=== PATIENT | female | born 1970 | race African-American/Black ===

== ENCOUNTER 2019-02-10 16:00 | Emergency (ER) | payer OTHER ==
--- NOTE | 2019-02-10 16:05 | PDOC ---
Rapid Medical Evaluation Chief Complaint: Injury Time Seen by Provider: 02/10/19 16:00 Medical Evaluation: 02/10/19 16:01 I have performed a brief in-person evaluation of this patient. The patient presents with a chief complaint of: tripped and twisted right leg and shoulder Pertinent physical exam findings: swelling to knee I have ordered the following: Knee Xray The patient will proceed to the ED for further evaluation. 02/10/19 16:04 Discharge Disposition - Diagnosis Fall - Referrals - Patient Instructions - Post Discharge Activity
[2019-02-10 16:11] VITALS: BP 138/76; PULSE 63; TEMP 97.5; BMI 35.4
--- NOTE | 2019-02-10 16:45 | PDOC ---
History of Present Illness - General Chief Complaint: Injury Stated Complaint: FALL Time Seen by Provider: 02/10/19 16:00 - History of Present Illness Initial Comments: 02/10/19 16:42 48-year-old female with a past medical history significant for hypertension presents for evaluation of right shoulder and right knee pain after a fall. She states she was at work fell down about 2 steps did not hit her head ambulated but came to the emergency room for further evaluation. She points to the anterior aspect of the right knee and right shoulder as the areas of her discomfort. No postinjury nausea vomiting or visual changes again she did not hit her head Past History - Past Medical History Allergies/Adverse Reactions: Allergies Allergy/AdvReac Type Severity Reaction Status Date / Time No Known Allergies Allergy Verified 02/10/19 16:02 Home Medications: Ambulatory Orders Hydrochlorothiazide [Hctz -] 25 mg PO DAILY 02/10/19 Lisinopril [Prinivil] 5 mg PO DAILY 02/10/19 COPD: No GI Disorders: Yes HTN: Yes - Surgical History Abdominal Surgery: (hernia repair, abd sx, unknown mesh?) Appendectomy: Yes - Suicide/Smoking/Psychosocial Hx Smoking History: Never smoked Hx Alcohol Use: Yes (rare) Drug/Substance Use Hx: No Review of Systems - Review of Systems Musculoskeletal: Yes: Joint Pain *Physical Exam - Vital Signs Last Vital Signs Temp Pulse Resp BP Pulse Ox 97.5 F L 63 16 138/76 98 02/10/19 16:03 02/10/19 16:03 02/10/19 16:03 02/10/19 16:03 02/10/19 16:03 - Physical Exam Comments: 02/10/19 16:42 Right shoulder skin color and temperature are normal range of motion is full and nonpainful. There is no tenderness. There is 5 out of 5 strength testing including supraspinatus isolation and external rotation as well as internal rotation. There are no gross sensory motor deficits negative impingement maneuvers. She's neurovascularly intact. Right knee skin color and temperature are normal range of motion is full and nonpainful. There is mild patellofemoral crepitation. No instability no apprehension, thighs and calves are soft and nontender no tenderness about the proximal fibula or along its distal course normal range of motion of the ankle and hip she's neurovascularly intact. Medical Decision Making - Medical Decision Making 02/10/19 16:43 X-rays of the right knee show no evidence of fracture trauma. There is mild arthritic changes. There is a right knee contusion and a right shoulder contusion. Weight-bear as tolerated follow-up with orthopedic surgery without fail for further evaluation and treatment options. Patient is in agreement with the plan discussed use of avoiding anti-inflammatories because of her CHRISTA inhibitor medication she'll take Tylenol for pain *DC/Admit/Observation/Transfer Diagnosis at time of Disposition: Fall, Contusion of knee, right, Contusion of right shoulder - Discharge Dispostion Disposition: HOME Condition at time of disposition: Stable Decision to Admit order: No - Referrals Referrals: Tacos Ness DO [Staff Physician] - - Patient Instructions Printed Discharge Instructions: Contusion, DI for Contusion Additional Instructions: Tylenol for pain as directed. Return to the emergency room for worsening symptoms. Follow-up with orthopedic surgery in 2-3 days for further evaluation and treatment options without fail. - Post Discharge Activity Forms/Work/School Notes: Back to Work
== END 2019-02-10 16:44 | disposition home or self-care (01) ==
LOC: JERFT 16:00
DX: S40.011A Contusion of right shoulder, initial encounter (principal); S80.01XA Contusion of right knee, initial encounter; W10.8XXA Fall (on) (from) other stairs and steps, initial encounter; Y93.89 Activity, other specified; Y92.248 Other public administrative building as the place of occurrence of the external cause; Y99.0 Civilian activity done for income or pay
CPT/HCPCS: 73562-TC-RT-FY; 99281-25

== ENCOUNTER 2020-04-12 16:21 | Emergency (ER) | payer OTHER ==
[2020-04-12 16:28] VITALS: BP 163/84; PULSE 56; TEMP 98.3; BMI 33.6
--- NOTE | 2020-04-12 16:50 | PDOC ---
History of Present Illness - General Chief Complaint: Headache Stated Complaint: HBP/SENT BY PCP Time Seen by Provider: 04/12/20 16:45 History Source: Patient - History of Present Illness Timing/Duration: reports: other (this am) Past History - Medical History Allergies/Adverse Reactions: Allergies Allergy/AdvReac Type Severity Reaction Status Date / Time No Known Allergies Allergy Verified 04/12/20 16:26 Home Medications: Ambulatory Orders Hydrochlorothiazide [Hctz -] 25 mg PO DAILY 02/10/19 Lisinopril [Prinivil] 5 mg PO DAILY 02/10/19 COPD: No GI Disorders: Yes (GERD) HTN: Yes - Surgical History Abdominal Surgery: (hernia repair, abd sx, unknown mesh?) Appendectomy: Yes - Reproductive History Is Patient Now?: No - Immunization History Immunization Up to Date: Yes - Psycho-Social/Smoking History Smoking History: Never smoked - Substance Abuse Hx (Audit-C & DAST Scrn) How often the patient has a drink containing alcohol: Never Score: In Men: 4 or > Positive; In Women: 3 or > Positive: 0 Screen Result (Pos requires Nsg. Audit-10AR): Negative In the last yr the pt used illegal drug/Rx for NonMed reason: No Score: Yes response is considered Positive: 0 Screen Result (Positive result requires Nsg. DAST-10): Negative Review of Systems - Review of Systems Constitutional: No: Chills, Fever ABD/GI: Yes: Nausea. No: Vomiting Neurological: Yes: Headache. 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 Patient had an appointment in [facility] clinic today and states blood pressure was found to be 160/100. Patient reported in clinic that she has been having a severe frontal headache all day, currently 10 out of 10, worse with food and associated with nausea. Patient states she has had headaches in the past but only with her period and has been postmenopausal now for several years. Denies headache is a worse of her life. No dizziness, vertigo, visual changes or focal weakness. Has not taken anything for pain see exam ÁLVAREZ in setting of poorly controlled HTN Alert w/ BP 163/84 w/ no focal deficits -pain control -CT head 04/12/20 18:25 CTH read as negative. Pt reports improvement in ÁLVAREZ w/ meds. Dc to f/u with PMD for better BP management Discharge - Discharge Information Problems reviewed: Yes Clinical Impression/Diagnosis: Elevated blood pressure reading Headache Qualifiers: Headache type: unspecified Headache chronicity pattern: acute headache Intractability: not intractable Qualified Code(s): R51 - Headache Condition: Improved Disposition: HOME - Follow up/Referral Referrals: Cosme Piper MD [Primary Care Provider] - - Patient Discharge Instructions Patient Printed Discharge Instructions: DI for Headache Additional Instructions: You head CT was normal Please continue to follow up with your PMD for better BP control - Post Discharge Activity
[2020-04-12] MEDS ORDERED: METOCLOPRAMIDE HCL INJECTION 10 MG/2 ML VIAL IVPB ONE (16:51)
[2020-04-12] MEDS ORDERED: METOCLOPRAMIDE HCL INJECTION 10 MG/2 ML VIAL ONE (17:05)
== END 2020-04-12 18:38 | disposition home or self-care (01) ==
LOC: JER 16:21
PROC: 3E033GC Introduction of Other Therapeutic Substance into Peripheral Vein, Percutaneous Approach (ICD-10-PCS; principal; 2020-04-12)
DX: R51 Headache (principal); R03.0 Elevated blood-pressure reading, without diagnosis of hypertension
CPT/HCPCS: 70450-TC; 99284-25

== ENCOUNTER 2021-03-30 04:25 | Day surgery (SDC) | payer OTHER ==
[2021-03-28 09:44] VITALS: BMI 33.6
[2021-03-30] MEDS ORDERED: LIDOCAINE 1%/EPI 1:100000 (20 ML MULTI DOSE VIAL) ONE (07:18)
[2021-03-30] MEDS ORDERED: BUPIVACAINE HCL/PF 0.5% (5MG/ML) 10 ML VIAL ONE ×2 (07:18→07:37)
[2021-03-30] MEDS ORDERED: KETOROLAC TROMETHAMINE 30 MG/1 ML VIAL ONE ×2 (07:39→09:40)
[2021-03-30] MEDS ORDERED: SUCCINYLCHOLINE CHLORIDE 200 MG/10 ML SYRINGE ONE (07:39)
[2021-03-30] MEDS ORDERED: PROPOFOL 20 ML ONE ×3 (07:39→08:32)
[2021-03-30] MEDS ORDERED: DEXAMETHASONE SOD PHOSPHATE 4 MG/1 ML VIAL ONE ×2 (07:39→09:40)
[2021-03-30] MEDS ORDERED: MIDAZOLAM HCL 2 MG/2 ML SINGLE DOSE VIAL ONE (07:39)
[2021-03-30] MEDS ORDERED: ONDANSETRON 4 MG/2 ML VIAL ONE ×2 (07:39→09:40)
[2021-03-30] MEDS ORDERED: ONDANSETRON 4 MG/2 ML VIAL IVPUSH PRN (08:27)
[2021-03-30] MEDS ORDERED: oxyCODONE HCL 5 MG TABLET PO PRN (08:27)
[2021-03-30] MEDS ORDERED: LACTATED RINGERS SOLUTION 1,000 ML IV SCH (08:30)
[2021-03-30] MEDS ORDERED: LIDOCAINE HCL 1% EPINEPHRINE 1:200,000 30 ML VIAL (PF) ONE (09:17)
[2021-03-30] MEDS ORDERED: BUPIVACAINE HCL/PF 0.5% (5MG/ML) 10 ML VIAL IJ ONE (09:35)
[2021-03-30] MEDS ORDERED: LIDOCAINE 1%/EPI 1:100000 (50 ML MULTI DOSE VIAL) INF ONE (09:35)
[2021-03-30] MEDS ORDERED: ACETAMINOPHEN 325 MG TABLET (FP) ONE (12:24)
[2021-03-30] MEDS ORDERED: ACETAMINOPHEN 325 MG TABLET (FP) PO ONE (12:30)
[2021-03-30 12:53] VITALS: BP 129/76; PULSE 68; TEMP 98
== END 2021-03-30 13:03 | disposition home or self-care (01) ==
LOC: JASU-SURG 04:25
PROVIDERS: ATTEND Orthopaedic Surgery
PROC: 0SBD4ZZ Excision of Left Knee Joint, Percutaneous Endoscopic Approach (ICD-10-PCS; principal; 2021-03-30 08:00)
DX: M23.8X2 Other internal derangements of left knee (principal); X58.XXXA Exposure to other specified factors, initial encounter; Y92.9 Unspecified place or not applicable; I10 Essential (primary) hypertension; D64.9 Anemia, unspecified; K21.9 Gastro-esophageal reflux disease without esophagitis
CPT/HCPCS: 94760

== ENCOUNTER 2021-05-26 17:25 | Inpatient (IN) | payer OTHER ==
[2021-05-26 17:43] VITALS: BMI 34.2
[2021-05-26 19:02] LABS: BASO % 0.7 % (0-2.0); EOS % 1.3 % (0-4.5); HEMATOCRIT 23.9 % (32.4-45.2); HEMOGLOBIN 7.5 GM/dL (10.7-15.3); LYMPH % 32.4 % (8-40); MCH 23.5 pg (25.7-33.7); MCHC 31.6 g/dl (32.0-36.0); MEAN CELL VOLUME 74.4 fl (80-96); MEAN PLT VOLUME 8.2 fl (7.5-11.1); MONO % 12.7 % (3.8-10.2); NEUT % 52.9 % (42.8-82.8); PLATELET COUNT 246 10^3/uL (134-434); RBC 3.21 M/mm3 (3.60-5.2); RDW 19.5 % (11.6-15.6); WHITE BLOOD COUNT 4.6 K/mm3 (4.0-10.0)
[2021-05-26 19:08] LABS: INR 0.97 (0.83-1.09); PROTHROMBIN TIME (PATIENT) 11.3 SEC (9.7-13.0)
[2021-05-26 19:15] LABS: CHLORIDE 103 mmol/L (98-107); SODIUM 140 mmol/L (136-145)
[2021-05-26 19:17] LABS: ANION GAP 7 MMOL/L (8-16); CALCIUM 8.6 mg/dL (8.5-10.1); CO2 30 mmol/L (21-32)
[2021-05-26 19:18] LABS: ALBUMIN 3.5 g/dl (3.4-5.0); BLOOD UREA NITROGEN 13.8 mg/dL (7-18)
[2021-05-26 19:21] LABS: SGOT/AST 14 U/L (15-37); SGPT/ALT 27 U/L (13-61)
[2021-05-26 19:22] LABS: CREATININE 0.8 mg/dL (0.55-1.3)
[2021-05-26 19:23] LABS: BILIRUBIN,TOTAL 0.2 mg/dL (0.2-1); TOT PROT 7.4 g/dl (6.4-8.2)
[2021-05-26 19:24] LABS: ALK PHOS 105 U/L (45-117)
[2021-05-26] MEDS ORDERED: PANTOPRAZOLE SODIUM 40 MG VIAL IVPUSH ONE (19:53)
[2021-05-26 20:03] LABS: GLUCOSE,RANDOM 88 mg/dL (74-106)
[2021-05-26] MEDS ORDERED: PANTOPRAZOLE SODIUM 40 MG VIAL ONE (20:15)
[2021-05-26 21:23] LABS: RETICULOCYTES 2.62 % (0.5-1.5)
[2021-05-26 21:28] LABS: IRON SERUM 13 ug/dL (50-175)
[2021-05-26 21:29] LABS: TOTAL IRON BINDING CAPACITY 392 ug/dL (250-450)
[2021-05-26 21:34] LABS: LDH 167 U/L (84-246)
[2021-05-27 08:13] LABS: CALCIUM 8.5 mg/dL (8.5-10.1)
[2021-05-27 08:16] LABS: BASO % 0.6 % (0-2.0); EOS % 1.4 % (0-4.5); HEMATOCRIT 25.8 % (32.4-45.2); HEMOGLOBIN 8.4 GM/dL (10.7-15.3); LYMPH % 37.5 % (8-40); MCH 25.1 pg (25.7-33.7); MCHC 32.6 g/dl (32.0-36.0); MEAN PLT VOLUME 8.9 fl (7.5-11.1); MONO % 11.9 % (3.8-10.2); NEUT % 48.6 % (42.8-82.8); PLATELET COUNT 227 10^3/uL (134-434); RBC 3.36 M/mm3 (3.60-5.2); RDW 19.9 % (11.6-15.6); WHITE BLOOD COUNT 4.1 K/mm3 (4.0-10.0)
[2021-05-27 08:20] LABS: CREATININE 0.8 mg/dL (0.55-1.3)
[2021-05-27] MEDS ORDERED: DEXTROSE 5%-0.45% SALINE 1,000 ML IV SCH (09:45)
[2021-05-27] MEDS ORDERED: D5-1/2NS+20 MEQ KCL - 20 MEQ/1,000 ML INFUS.BAG IV SCH (11:00)
[2021-05-27] MEDS: PANTOPRAZOLE SODIUM 40 MG VIAL IVPUSH SCH (12:30)
[2021-05-27] MEDS: KCL 10 MEQ IVPB 10 MEQ/100 ML INFUS.BAG IVPB SCH ×2 (12:58→15:31)
[2021-05-27] MEDS ORDERED: IRON SUCROSE INJECTION 200 MG in SODIUM CHLORIDE 90 ML IVPB ONE (13:00)
[2021-05-27] MEDS ORDERED: POTASSIUM CHLORIDE ORAL LIQUID 20 MEQ/15 ML PO ONE (15:32)
[2021-05-27 16:42] LABS: HEMATOCRIT 27.5 % (32.4-45.2); HEMOGLOBIN 8.8 GM/dL (10.7-15.3); MCH 24.4 pg (25.7-33.7); MEAN CELL VOLUME 76.4 fl (80-96); MEAN PLT VOLUME 8.7 fl (7.5-11.1); PLATELET COUNT 231 10^3/uL (134-434); RDW 19.7 % (11.6-15.6); WHITE BLOOD COUNT 5.4 K/mm3 (4.0-10.0)
[2021-05-28 07:30] LABS: BASO % 0.7 % (0-2.0); EOS % 0.8 % (0-4.5); HEMATOCRIT 25.4 % (32.4-45.2); HEMOGLOBIN 8.3 GM/dL (10.7-15.3); LYMPH % 29.2 % (8-40); MCHC 32.5 g/dl (32.0-36.0); MEAN CELL VOLUME 76.9 fl (80-96); MEAN PLT VOLUME 8.8 fl (7.5-11.1); MONO % 11.2 % (3.8-10.2); NEUT % 58.1 % (42.8-82.8); PLATELET COUNT 228 10^3/uL (134-434); RBC 3.31 M/mm3 (3.60-5.2); WHITE BLOOD COUNT 5.5 K/mm3 (4.0-10.0)
[2021-05-28 07:38] LABS: CHLORIDE 109 mmol/L (98-107); SODIUM 143 mmol/L (136-145)
[2021-05-28 07:42] LABS: BLOOD UREA NITROGEN 9.7 mg/dL (7-18); GLUCOSE,RANDOM 97 mg/dL (74-106)
[2021-05-28 07:44] LABS: CALCIUM 7.6 mg/dL (8.5-10.1); CREATININE 0.7 mg/dL (0.55-1.3); IRON SERUM 312 ug/dL (50-175)
[2021-05-28 07:45] LABS: ANION GAP 7 MMOL/L (8-16); CO2 27 mmol/L (21-32); TOTAL IRON BINDING CAPACITY 324 ug/dL (250-450)
[2021-05-28 07:49] LABS: LDH 134 U/L (84-246)
[2021-05-28] MEDS: PANTOPRAZOLE SODIUM 40 MG VIAL IVPUSH SCH (09:31)
[2021-05-28] MEDS: LOSARTAN 50MG/HCTZ 12.5MG 1 TAB PO SCH (11:04)
[2021-05-29 08:30] LABS: BASO % 0.7 % (0-2.0); EOS % 1.7 % (0-4.5); HEMATOCRIT 27.8 % (32.4-45.2); HEMOGLOBIN 8.9 GM/dL (10.7-15.3); LYMPH % 31.3 % (8-40); MCH 24.8 pg (25.7-33.7); MEAN CELL VOLUME 77.4 fl (80-96); MEAN PLT VOLUME 8.3 fl (7.5-11.1); MONO % 11.2 % (3.8-10.2); NEUT % 55.1 % (42.8-82.8); PLATELET COUNT 234 10^3/uL (134-434); RBC 3.59 M/mm3 (3.60-5.2); RDW 20.1 % (11.6-15.6); WHITE BLOOD COUNT 5.5 K/mm3 (4.0-10.0)
[2021-05-29 08:39] LABS: CALCIUM 8.2 mg/dL (8.5-10.1)
[2021-05-29 08:41] LABS: ALBUMIN 3.2 g/dl (3.4-5.0); BLOOD UREA NITROGEN 10.1 mg/dL (7-18)
[2021-05-29 08:43] LABS: CREATININE 0.8 mg/dL (0.55-1.3)
[2021-05-29 08:44] LABS: BILIRUBIN,TOTAL 0.4 mg/dL (0.2-1)
[2021-05-29] MEDS: LOSARTAN 50MG/HCTZ 12.5MG 1 TAB PO SCH (09:28)
[2021-05-29] MEDS: PANTOPRAZOLE SODIUM 40 MG VIAL IVPUSH SCH (09:29)
[2021-05-30 08:35] LABS: BASO % 0.8 % (0-2.0); EOS % 1.6 % (0-4.5); HEMATOCRIT 28.1 % (32.4-45.2); HEMOGLOBIN 9.1 GM/dL (10.7-15.3); LYMPH % 32.6 % (8-40); MCHC 32.6 g/dl (32.0-36.0); MEAN CELL VOLUME 76.7 fl (80-96); MEAN PLT VOLUME 8.1 fl (7.5-11.1); MONO % 9.3 % (3.8-10.2); NEUT % 55.7 % (42.8-82.8); PLATELET COUNT 237 10^3/uL (134-434); RBC 3.66 M/mm3 (3.60-5.2); RDW 20.5 % (11.6-15.6); WHITE BLOOD COUNT 5.2 K/mm3 (4.0-10.0)
[2021-05-30] MEDS ORDERED: PT OWN MED DRAWER 7, Y5N ONE (08:58)
[2021-05-30] MEDS: PANTOPRAZOLE SODIUM 40 MG VIAL IVPUSH SCH (09:18)
[2021-05-30] MEDS: LOSARTAN 50MG/HCTZ 12.5MG 1 TAB PO SCH (09:18)
[2021-05-30 11:18] LABS: ANISOCYTOSIS 1+; MACROCYTOSIS 0; OVALOCYTE 1+; PLATELET ESTIMATE NORMAL; TEAR DROP CELLS 1+
[2021-05-30] MEDS ORDERED: BISACODYL 5 MG TABLET.DR (FP) PO ONE (16:00)
[2021-05-30] MEDS ORDERED: PEG 3350/NA SULF BICARB CL/KCL 4000 ML SOLN.RECON PO ONE (17:00)
[2021-05-30 20:07] LABS: GLIADIN ANTIBODY IGA 5 units (0-19); GLIADIN ANTIBODY IGG 2 units (0-19); TRANSGLUTAMINASE IGG < 2 U/mL (0-5)
[2021-05-31] MEDS ORDERED: SODIUM PHOSPHATE/NA BIPHOS 133 ML ENEMA RC ONE (04:00)
[2021-05-31] MEDS ORDERED: SIMETHICONE 40 MG/0.6 ML BOTTLE ONE (13:30)
[2021-05-31] MEDS: LOSARTAN 50MG/HCTZ 12.5MG 1 TAB PO SCH (15:36)
[2021-05-31] MEDS: PANTOPRAZOLE SODIUM 40 MG VIAL IVPUSH SCH (15:36)
[2021-06-01 08:25] LABS: BASO % 0.6 % (0-2.0); HEMATOCRIT 28.3 % (32.4-45.2); HEMOGLOBIN 9.2 GM/dL (10.7-15.3); LYMPH % 26.9 % (8-40); MCH 25.1 pg (25.7-33.7); MCHC 32.3 g/dl (32.0-36.0); MEAN CELL VOLUME 77.5 fl (80-96); MEAN PLT VOLUME 8.6 fl (7.5-11.1); MONO % 10.7 % (3.8-10.2); NEUT % 60.8 % (42.8-82.8); PLATELET COUNT 220 10^3/uL (134-434); RBC 3.66 M/mm3 (3.60-5.2); RDW 21.4 % (11.6-15.6); WHITE BLOOD COUNT 5.1 K/mm3 (4.0-10.0)
[2021-06-01 08:37] LABS: CALCIUM 8.7 mg/dL (8.5-10.1)
[2021-06-01 08:38] LABS: BLOOD UREA NITROGEN 12.7 mg/dL (7-18)
[2021-06-01 08:41] LABS: CREATININE 0.8 mg/dL (0.55-1.3)
[2021-06-01] MEDS ORDERED: PT OWN MED DRAWER 7, Y5N ONE ×3 (10:19→15:43)
[2021-06-01] MEDS: LOSARTAN 50MG/HCTZ 12.5MG 1 TAB PO SCH (10:21)
[2021-06-01 12:05] VITALS: BP 133/94; PULSE 87; TEMP 99
== END 2021-06-01 14:43 | disposition home or self-care (01) | DRG 379 ==
LOC: JER 17:25 → JERBED 20:12 → J4W 05-27 02:22 → J7W 05-29 16:20
PROVIDERS: ADMIT Internal Medicine; ATTEND Family Medicine
PROC: 30233N1 Transfusion of Nonautologous Red Blood Cells into Peripheral Vein, Percutaneous Approach (ICD-10-PCS; 2021-05-26)
PROC: 0DB68ZX Excision of Stomach, Via Natural or Artificial Opening Endoscopic, Diagnostic (ICD-10-PCS; 2021-05-30)
PROC: 0DJD8ZZ Inspection of Lower Intestinal Tract, Via Natural or Artificial Opening Endoscopic (ICD-10-PCS; principal; 2021-05-31 12:30)
DX: K92.2 Gastrointestinal hemorrhage, unspecified (principal); D50.9 Iron deficiency anemia, unspecified; I10 Essential (primary) hypertension; K21.9 Gastro-esophageal reflux disease without esophagitis; R42 Dizziness and giddiness; K44.9 Diaphragmatic hernia without obstruction or gangrene; E66.9 Obesity, unspecified; Z68.34 Body mass index [BMI] 34.0-34.9, adult; K57.30 Diverticulosis of large intestine without perforation or abscess without bleeding; K64.8 Other hemorrhoids
CPT/HCPCS: 36415; 36430; 71045-TC-FY; 80048; 80053; 82272; 82550; 82728; 82784; 83010; 83516; 83540; 83550; 83615; 84484; 84703; 85025; 85027; 85045; 85610; 85730; 86140; 86850; 86900; 86901; 86922; 88305-TC; 93005; 93010; 93306-TC; 99285-25; C9803; J1756; P9058; U0003; U0005

== ENCOUNTER 2022-09-25 12:27 | Emergency (ER) | payer OTHER ==
[2022-09-25 13:14] VITALS: BP 146/92; PULSE 86; RESP 18; TEMP 98.9; BMI 34.5
[2022-09-25] MEDS ORDERED: DEXAMETHASONE SOD PHOSPHATE 10 MG/1 ML VIAL PO ONE (15:31)
[2022-09-25] MEDS ORDERED: ALBUTEROL SO4 2.5/IPRATROPIUM 0.5 INH SOL 3 ML VIAL.NEB. NEB ONE ×2 (15:31→15:43)
[2022-09-25] MEDS ORDERED: DEXAMETHASONE SOD PHOSPHATE 10 MG/1 ML VIAL ONE (15:43)
== END 2022-09-25 16:19 | disposition home or self-care (01) ==
LOC: JERFT 12:27 → JER 12:27 → JERFT 16:19
PROC: 3E0F7GC Introduction of Other Therapeutic Substance into Respiratory Tract, Via Natural or Artificial Opening (ICD-10-PCS; principal; 2022-09-25)
DX: U07.1 COVID-19 (principal)
CPT/HCPCS: 99283-25; J1100

== ENCOUNTER 2023-07-11 04:44 | Day surgery (SDC) | payer OTHER ==
[2023-07-03 12:57] VITALS: BMI 33.6
[2023-07-11] MEDS ORDERED: BUPIVACAINE HCL/PF 0.5% (5MG/ML) 10 ML VIAL ONE (07:44)
[2023-07-11] MEDS ORDERED: LIDOCAINE 1%/EPI 1:100000 (20 ML MULTI DOSE VIAL) ONE (07:45)
[2023-07-11] MEDS ORDERED: FENTANYL CITRATE/PF 50 MCG/ML VIAL ONE ×2 (07:58→08:27)
[2023-07-11] MEDS ORDERED: MIDAZOLAM HCL 2 MG/2 ML SINGLE DOSE VIAL ONE (07:58)
[2023-07-11] MEDS ORDERED: PROPOFOL 20 ML ONE (07:58)
[2023-07-11] MEDS ORDERED: SEVOFLURANE 250 ML BTL ONE (07:59)
[2023-07-11] MEDS ORDERED: LIDOCAINE HCL/PF 2% SDV 5ML VIAL ONE (07:59)
[2023-07-11] MEDS ORDERED: ONDANSETRON 4 MG/2 ML VIAL ONE (07:59)
[2023-07-11] MEDS ORDERED: DEXAMETHASONE SOD PHOSPHATE 4 MG/1 ML VIAL ONE (07:59)
[2023-07-11] MEDS ORDERED: BUPIVACAINE HCL/PF 0.5% (5 MG/ML) 30 ML VIAL IJ ONE (08:30)
[2023-07-11] MEDS ORDERED: LIDOCAINE 1%/EPI 1:100000 (20 ML MULTI DOSE VIAL) IJ ONE (08:30)
[2023-07-11] MEDS ORDERED: ONDANSETRON 4 MG/2 ML VIAL IVPUSH PRN (08:53)
[2023-07-11] MEDS ORDERED: ACETAMINOPHEN 1000 MG/100 ML BAG IVPB PRN (08:53)
[2023-07-11] MEDS ORDERED: oxyCODONE HCL 5 MG TABLET PO PRN ×2 (08:53)
[2023-07-11] MEDS ORDERED: LACTATED RINGERS SOLUTION 1,000 ML IV SCH (09:00)
[2023-07-11] MEDS: ACETAMINOPHEN INJECTION 100 ML IVPB ONE ×2 (09:45→09:47)
[2023-07-11 11:48] VITALS: RESP 20
[2023-07-11 13:39] VITALS: BP 128/85; PULSE 87; TEMP 98.2
== END 2023-07-11 13:40 | disposition home or self-care (01) ==
LOC: JASU-SURG 04:44
PROVIDERS: ATTEND Orthopaedic Surgery
PROC: 0SBC4ZZ Excision of Right Knee Joint, Percutaneous Endoscopic Approach (ICD-10-PCS; principal; 2023-07-11 08:00)
DX: S83.241A Other tear of medial meniscus, current injury, right knee, initial encounter (principal); M23.91 Unspecified internal derangement of right knee; X58.XXXA Exposure to other specified factors, initial encounter; Y93.9 Activity, unspecified; Y92.9 Unspecified place or not applicable
CPT/HCPCS: 94760